=== PATIENT | female | born 1980 ===

== ENCOUNTER → 2023-12-30 09:43 | Outpatient (BNVA) | payer OTHER, SELFPAY | PROVIDERS: Visit Provider Physician Assistant Medical | DX: S39.012A Strain of muscle, fascia and tendon of lower back, initial encounter (principal); X50.0XXA Overexertion from strenuous movement or load, initial encounter | CPT/HCPCS: 99203 ==

== ENCOUNTER → 2024-01-01 11:14 | Outpatient (BNVA) | payer OTHER, SELFPAY | PROVIDERS: Visit Provider Physician Assistant Medical | DX: S39.012A Strain of muscle, fascia and tendon of lower back, initial encounter (principal); X50.0XXA Overexertion from strenuous movement or load, initial encounter | CPT/HCPCS: 99213 ==

== ENCOUNTER → 2024-01-08 09:57 | Outpatient (BNVA) | payer OTHER, SELFPAY | PROVIDERS: Visit Provider Physician Assistant Medical | DX: S39.012D Strain of muscle, fascia and tendon of lower back, subsequent encounter (principal); X50.0XXD Overexertion from strenuous movement or load, subsequent encounter | CPT/HCPCS: 99213 ==

== ENCOUNTER → 2024-01-15 11:09 | Outpatient (BNVA) | payer OTHER, SELFPAY | PROVIDERS: Visit Provider Physician Assistant Medical | DX: S39.012D Strain of muscle, fascia and tendon of lower back, subsequent encounter (principal); X50.0XXD Overexertion from strenuous movement or load, subsequent encounter | CPT/HCPCS: 99213 ==

== ENCOUNTER → 2024-02-02 10:11 | Outpatient (BNVA) | payer OTHER, SELFPAY | PROVIDERS: PCP Pediatrics; Visit Provider Physician Assistant Medical | DX: S39.012D Strain of muscle, fascia and tendon of lower back, subsequent encounter (principal); X50.0XXD Overexertion from strenuous movement or load, subsequent encounter | CPT/HCPCS: 99213 ==

== ENCOUNTER → 2024-02-12 10:08 | Outpatient (BNVA) | payer OTHER, SELFPAY | PROVIDERS: PCP Pediatrics; Visit Provider Physician Assistant | DX: M54.50 Low back pain, unspecified (principal) | CPT/HCPCS: 72100; 99215 ==

== ENCOUNTER 2024-02-20 09:57 | Outpatient (RCR) | payer OTHER, SELFPAY ==
--- NOTE | 2024-01-27 16:34 | MHC.PT.EP ---
[facility] [place] Office [place] Office [place] Office [address] Jesika Kelley [address] [phone] F: [phone] F: [phone] F: [phone] F: [phone] Physical Therapy Plan of Care Date of Evaluation: 01/27/24 Date of Surgery: Diagnosis: Lumbar sprain/ strain Assessment: Pt is a 43 y/o female [employer] who is referred to PT for eval and treat of lumbar strain who reports she was performing bed mobility with a faulty bed mechanism and injured her back on 12/27/23 which is resulting in decreased tolerance for traveling by vehicle, performing heavy HH chores, walking and standing for increased duration secondary to decreased trunk ROM, decreased core strength, increased lumbar and posterior LE tissue tension, TTP of L5 area, decreased posture and pain. Frequency and Duration: The patient will be seen 2 x/ wk x 3 wks. Short Term Goals: Initiate home program. Improve baseline pain to < 3/10; initial: 5/10. Roll Panner Goals: I with home program. Pt will improve Erlin by at least 9 points. Pt will be able to travel by car with managed Sx. Pt will improve core strength by at least 1/2 MMT grade. Pt will be able to tolerate heavy HH chores with managed Sx. Treatment Plan: Modalities to reduce pain, spasms and effusion. Manual therapy to restore motion and function. Therapeutic exercise to improve strength and flexibility. Neuromuscular re-education for posture and balance. Therapeutic activities to return to functional activities of daily living. Electronically signed by: Colin Mercedes PT. Please sign and return to therapist. Thank you for your referral.
--- NOTE | 2024-06-18 07:25 | MHC.PT.DC ---
[facility] [place] Office [place] Office [place] Office [address] Jesika Kelley [address] [phone] F: [phone] F: [phone] F: [phone] F: [phone] Physical Therapy Discharge Report Diagnosis: Lumbar sprain/ strain Date of Surgery: Date of Evaluation: 01/27/24 Date of Discharge: 06/18/24 Treatments to Date: 5 Cancellations to Date: No Shows to Date: 1 Discharge Status: Patient Elected to Stop Discharge Summary: Pt did not f/u with visits after MRI. Electronically signed by: Colin Mercedes PT. Please sign and return to therapist. Thank you for your referral.
== END 2024-06-18 07:26 | disposition home or self-care (01) ==
LOC: HO.PT 09:57
PROVIDERS: PCP Pediatrics; Visit Provider Physician Assistant Medical
DX: S39.012D Strain of muscle, fascia and tendon of lower back, subsequent encounter (principal)
CPT/HCPCS: 97110; 97140; 97161

== ENCOUNTER → 2024-02-20 15:19 | Outpatient (BNVA) | payer OTHER, SELFPAY | PROVIDERS: PCP Pediatrics; Visit Provider Physician Assistant | DX: S39.012D Strain of muscle, fascia and tendon of lower back, subsequent encounter (principal); X50.0XXD Overexertion from strenuous movement or load, subsequent encounter | CPT/HCPCS: 99213 ==

== ENCOUNTER 2024-02-24 11:16 | Outpatient (REF) | payer OTHER, SELFPAY | END 2024-02-24 11:17 | disposition home or self-care (01) | LOC: HO.MRI 11:16 | PROVIDERS: PCP Pediatrics; Visit Provider Internal Medicine | DX: S33.5XXA Sprain of ligaments of lumbar spine, initial encounter (principal) | CPT/HCPCS: 72148 ==

== ENCOUNTER → 2024-02-24 11:30 | Outpatient (BNV) | payer OTHER, SELFPAY | PROVIDERS: PCP Pediatrics; Visit Provider Radiology Diagnostic Radiology | DX: M51.27 Other intervertebral disc displacement, lumbosacral region (principal) | CPT/HCPCS: 72148 ==

== ENCOUNTER → 2024-03-05 09:37 | Outpatient (BNVA) | payer OTHER, SELFPAY | PROVIDERS: PCP Pediatrics; Visit Provider Physician Assistant | DX: S39.012D Strain of muscle, fascia and tendon of lower back, subsequent encounter (principal); X50.0XXD Overexertion from strenuous movement or load, subsequent encounter; M51.379 Other intervertebral disc degeneration, lumbosacral region without mention of lumbar back pain or lower extremity pain | CPT/HCPCS: 99213 ==

== ENCOUNTER → 2024-03-09 10:02 | Outpatient (BNVA) | payer OTHER, SELFPAY | PROVIDERS: PCP Pediatrics; Visit Provider Physician Assistant Medical | DX: M51.27 Other intervertebral disc displacement, lumbosacral region (principal); S39.012D Strain of muscle, fascia and tendon of lower back, subsequent encounter; X50.0XXD Overexertion from strenuous movement or load, subsequent encounter | CPT/HCPCS: 99213 ==

== ENCOUNTER → 2024-03-30 09:11 | Outpatient (BNVA) | payer OTHER, SELFPAY | PROVIDERS: PCP Pediatrics; Visit Provider Physician Assistant Medical | DX: S39.012D Strain of muscle, fascia and tendon of lower back, subsequent encounter (principal); X50.0XXD Overexertion from strenuous movement or load, subsequent encounter; M51.27 Other intervertebral disc displacement, lumbosacral region | CPT/HCPCS: 99213 ==

== ENCOUNTER → 2024-04-05 09:11 | Outpatient (BNVA) | payer OTHER, SELFPAY | PROVIDERS: PCP Pediatrics; Visit Provider Physician Assistant Medical | DX: M51.27 Other intervertebral disc displacement, lumbosacral region (principal) | CPT/HCPCS: 99213 ==

== ENCOUNTER → 2024-04-15 13:05 | Outpatient (BNVA) | payer OTHER, SELFPAY | PROVIDERS: PCP Pediatrics; Visit Provider Physician Assistant Medical | DX: S39.012D Strain of muscle, fascia and tendon of lower back, subsequent encounter (principal); X50.0XXD Overexertion from strenuous movement or load, subsequent encounter; M51.27 Other intervertebral disc displacement, lumbosacral region | CPT/HCPCS: 99213 ==

== ENCOUNTER → 2024-04-29 11:36 | Outpatient (BNVA) | payer OTHER, SELFPAY | PROVIDERS: PCP Pediatrics; Visit Provider Physician Assistant Medical | DX: M51.27 Other intervertebral disc displacement, lumbosacral region (principal) | CPT/HCPCS: 99213 ==

== ENCOUNTER → 2024-05-13 08:53 | Outpatient (BNVA) | payer OTHER, SELFPAY | PROVIDERS: PCP Pediatrics; Visit Provider Physician Assistant Medical | DX: M51.27 Other intervertebral disc displacement, lumbosacral region (principal) | CPT/HCPCS: 99213 ==

== ENCOUNTER 2024-05-17 11:09 | Outpatient (AMB) | payer OTHER, SELFPAY ==
[2024-05-17 11:20] VITALS: BP 106/68; PULSE 79; RESP 16; O2SAT 97; BMI 26.9
--- NOTE | 2024-05-17 11:20 | MHC.OFFVIS ---
Vital Signs 05/17/24 11:20 Height 5 ft 2 in Weight 147 lb BMI 26.9 BP 106/68 Blood Pressure Location Lt brachial Position Sitting Respiration 16 Pulse 79 Pulse Source Pulse Oximeter Pulse Oximetry (%) 97 Oxygen Delivery Method Room Air Intake Visit Reasons: Lumbosacral strain/back pain WC Physician Executive Required: No Allergies No Known Allergies Allergy (Verified 05/17/24 11:22) Medication List - Last Reconciled 05/17/24 by Farheen Patel LPN HPI HPI Lumbosacral strain/back pain WC: Details: History of Present Illness The patient is a 44-year-old female presenting with chronic lower back pain originating from an occupational incident. The pain initially began when she incurred a back strain while attempting to reposition a patient on December 27, 2023, with subsequent identification of a probable bulging disc at the L5-S1 vertebral level. Initially resistant to physical therapy, her condition showed improvement with career representative. Despite improvements, she seeks comprehensive pain management, particularly referral to specialized services. The patient continues to report pain primarily localized in the mid to lower region of her back, exacerbated by certain physical activities. Pursuant recommendations during discussion focused on enhancing core and gluteal strength and included lifestyle modifications to prevent further strain. Pain Description - Onset: Approximately 6 months ago after a workplace incident on December 27, 2023 - Quality/Character: Strain and intermittent exacerbation - Primary Location: Mid to lower back - Exacerbating Factors: Hand movements, improper lifting, repositioning patients - Relieving Factors: Chiropractic sessions, core strengthening exercises, proper lifting technique - Pain Score: Currently around one on a 10-point scale - Additional Factors: Pain localized primarily in lower back without radiation to legs Physical Exam - Appears afebrile. - Alert and oriented. - Mood and affect appropriate. - Follows and participates in conversation appropriately. - Respiratory effort is unlabored. - Able to transition from sit to stand unassisted. - Ambulates with bilaterally normal heel strike and toe off. - Able to stand and walk on toes and heels. Results - Imaging: Bulging Intervertebral Disc at L5-S1, with some degeneration Pain Management - Affect: Chronic pain affecting daily activities and occupational performance - Analgesia: Initial physical therapy sessions ineffective; career representative partially effective; pain level currently at one - Adverse Effects: Not explicitly discussed - Activities of Daily Living: Pain affects certain movements and work-related activities, thus seeking pain management for functional improvement - Aberrant Drug Related Behaviors: Not present Physical Exam Vital Signs: Last Vital Signs Pulse 79 05/17/24 11:20 Resp 16 05/17/24 11:20 BP 106/68 05/17/24 11:20 Pulse Ox 97 05/17/24 11:20 Oxygen Delivery Method Room Air 05/17/24 11:20 BMI result Body Mass Index 26.9 Assessment & Plan Assessment & Plan (1) Lumbago with sciatica: Code(s): M54.40 - Lumbago with sciatica, unspecified side Category: Medical Plan Plan For the management of chronic lower back pain, primarily stemming from an L5-S1 bulging disc, I have advised a regimen geared towards strengthening core and gluteal muscles, avoidance of career representative as a long-term solution, and incorporating swimming to support spinal health. Proper activity modifications including effective lifting techniques were discussed at length. The introduction of peripheral nerve stimulation remains a potential future intervention if pain persists. Treatment adherence and monitoring of pain levels are crucial moving forward. Patient was informed and verbally consented to the use of an ambient scribe for clinic note documentation during this visit. Discussion Notes During the consultation, I emphasized a tailored program for long-term pain relief focusing on core and gluteal strengthening aligned with swimming as an appropriate physical activity. It was explained that career representative, while currently providing relief, might not suffice for sustained management. Advised techniques for proper lifting and posture were discussed in context to occupational risks and I provided guidance on identifying core strengthening resources. Consideration for peripheral nerve stimulation was presented as a non-invasive alternative should intensified back rehabilitation fail to suffice. The patient expressed understanding and was counseled on maintaining vigilance regarding pain and functionality. Patient Instructions - Engage in daily core and gluteal strengthening exercises - Practice proper lifting techniques at work and home to prevent exacerbation of pain - Consider swimming as a low-impact exercise to support back health - Monitor pain levels and functionality, seek further care appropriately if discomfort persists - Explore online resources for core strengthening exercises - Follow-up with paint pourer as recommended Coding Level of Care Code New Pt Level 3 (04620) Diagnoses Lumbago with sciatica M54.40
== END 2024-05-17 11:58 | disposition home or self-care (01) ==
LOC: HO.PMC 11:09
PROVIDERS: PCP Pediatrics; Visit Provider Internal Medicine
DX: M54.40 Lumbago with sciatica, unspecified side (principal)
CPT/HCPCS: 99203

== ENCOUNTER → 2024-05-17 11:09 | Outpatient (BNVA) | payer OTHER, SELFPAY | PROVIDERS: PCP Pediatrics; Visit Provider Internal Medicine | DX: M54.40 Lumbago with sciatica, unspecified side (principal) | CPT/HCPCS: 99202 ==

== ENCOUNTER → 2024-06-04 13:41 | Outpatient (BNVA) | payer OTHER, SELFPAY | PROVIDERS: PCP Pediatrics; Visit Provider Physician Assistant Medical | DX: M51.27 Other intervertebral disc displacement, lumbosacral region (principal) | CPT/HCPCS: 99213 ==

== ENCOUNTER → 2024-06-29 08:56 | Outpatient (BNVA) | payer OTHER, SELFPAY | PROVIDERS: PCP Pediatrics; Visit Provider Physician Assistant Medical | DX: M51.27 Other intervertebral disc displacement, lumbosacral region (principal) | CPT/HCPCS: 99213 ==

== ENCOUNTER → 2024-07-13 08:43 | Outpatient (BNVA) | payer OTHER, SELFPAY | PROVIDERS: PCP Pediatrics; Visit Provider Physician Assistant Medical | DX: M51.27 Other intervertebral disc displacement, lumbosacral region (principal) | CPT/HCPCS: 99213 ==

== ENCOUNTER → 2024-08-24 09:12 | Outpatient (BNVA) | payer OTHER, SELFPAY | PROVIDERS: PCP Pediatrics; Visit Provider Physician Assistant Medical | DX: M51.27 Other intervertebral disc displacement, lumbosacral region (principal) | CPT/HCPCS: 99213 ==

== ENCOUNTER → 2024-09-23 15:30 | Outpatient (BNVA) | payer OTHER, SELFPAY | PROVIDERS: PCP Pediatrics; Visit Provider Physician Assistant Medical | DX: M51.27 Other intervertebral disc displacement, lumbosacral region (principal) | CPT/HCPCS: 99213 ==

== ENCOUNTER → 2024-10-28 10:16 | Outpatient (BNVA) | payer OTHER, SELFPAY | PROVIDERS: PCP Pediatrics; Visit Provider Physician Assistant Medical | DX: S39.012D Strain of muscle, fascia and tendon of lower back, subsequent encounter (principal); X50.0XXD Overexertion from strenuous movement or load, subsequent encounter; M51.27 Other intervertebral disc displacement, lumbosacral region | CPT/HCPCS: 99213 ==

== ENCOUNTER → 2024-11-15 09:07 | Outpatient (BNVA) | payer OTHER, SELFPAY | PROVIDERS: PCP Pediatrics; Visit Provider Physician Assistant Medical | DX: M51.27 Other intervertebral disc displacement, lumbosacral region (principal) | CPT/HCPCS: 99213 ==

== ENCOUNTER → 2024-12-16 09:12 | Outpatient (BNVA) | payer OTHER, SELFPAY | PROVIDERS: PCP Pediatrics; Visit Provider Physician Assistant Medical | DX: M51.27 Other intervertebral disc displacement, lumbosacral region (principal) | CPT/HCPCS: 99213 ==

== ENCOUNTER → 2025-01-13 09:00 | Outpatient (BNVA) | payer OTHER, SELFPAY | PROVIDERS: PCP Pediatrics; Visit Provider Physician Assistant Medical | DX: M51.27 Other intervertebral disc displacement, lumbosacral region (principal) | CPT/HCPCS: 99213 ==

== ENCOUNTER 2025-02-07 11:21 | Outpatient (AMB) | payer OTHER, SELFPAY ==
--- NOTE | 2025-02-07 11:23 | A.OFFVIS_ITS ---
Vital Signs 02/07/25 11:24 Height 5 ft 2 in Weight 146 lb BMI 26.7 BP 112/74 Blood Pressure Location Lt brachial Position Sitting Respiration 16 Pulse 73 Pulse Source Pulse Oximeter Pulse Oximetry (%) 100 Oxygen Delivery Method Room Air Intake Visit Reasons: Back Pain Senior Adults Director Required: No Allergies No Known Allergies Allergy (Verified 02/07/25 11:25) Medication List - Last Reconciled 02/07/25 by Farheen Patel LPN indomethacin 50 mg PO BID lidocaine 5% 1 patch topically 1 patch daily q 12 hours; leave on most painful area for up to 12 hrs magnesium oxide 400 mg PO DAILY HPI HPI Back Pain: Details: History of Present Illness The patient is a 44 year old female presenting for a follow-up visit regarding low back pain with a history of associated sciatica. She was last seen in August when physical therapy with lumbar stretching and strengthening was recommended. 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 Since she has not been working, her pain is currently not severe. However, she experienced a flare of severe, localized lower back pain a couple of weeks ago after a twisting movement, though she denies radicular symptoms down her leg. The patient has participated in physical therapy and child care associate teacher, stating she has maxed out her physical therapy. She expresses that she is not fond of needles and wishes to explore options other than injections, which she has not received. Pain Description - Location: The patient's pain is located in her lower back. - Radiation: She reports no pain radiating down her leg. - Exacerbating Factors: Pain is worsened by certain movements, such as a recent twisting motion, and her work as a nurse's aid. - Relieving Factors: Pain is less severe when she is not working. Physical Exam - Appears afebrile. - Alert and oriented. - Mood and affect appropriate. - Follows and participates in conversation appropriately. - Respiratory effort is unlabored. Results - MRI: Shows a degenerating L5-S1 disc. Pain Management - Affect: The patient's pain interferes with her ability to perform her job duties as a nurse's aid. - Analgesia: The patient expresses a preference to avoid injections for her back pain. - Activities of Daily Living: She is unable to perform her full duties at work. Physical Exam Vital Signs: Last Vital Signs Pulse 73 02/07/25 11:24 Resp 16 02/07/25 11:24 BP 112/74 02/07/25 11:24 Pulse Ox 100 02/07/25 11:24 Oxygen Delivery Method Room Air 02/07/25 11:24 BMI result Body Mass Index 26.7 Assessment & Plan Assessment & Plan (1) Discogenic low back pain: Code(s): M51.360 - Other intervertebral disc degeneration, lumbar region with discogenic back pain only Category: Medical Plan Plan Patient was informed and verbally consented to the use of an ambient scribe for clinic note documentation during this visit. 1. Discogenic Low Back Pain - The patient's pain is primarily discogenic due to significant degeneration of the L5-S1 disc, with no current evidence of nerve root compression that would justify an epidural steroid injection. She also denies radicular symptoms. - A long-term rehabilitation approach focused on strengthening core and gluteal muscles is recommended to minimize the frequency of flares. - Recommend continuing physical therapy and adding aquatic therapy to help with the discogenic component of her pain. - She was advised to avoid chiropractic treatments and lifting weights above her spinal level. - The patient was instructed to research aquatic physical therapy options and inform the office of referral requirements for worker's compensation. - An order for continued physical therapy will be provided if required by worker's compensation. Discussion Notes I explained to the patient that her low back pain stems from a degenerating disc at the L5-S1 level, which I showed her on her MRI. I educated her that this disc will likely not regenerate and will undergo slow deterioration, so the goal of treatment is to manage the condition and reduce the frequency of pain flares. I emphasized that strengthening the surrounding core and gluteal muscles will provide support to the spine and lessen the pressure on the affected disc. I recommended specific exercises like squats and planks, and advised against lifting weights above her spine level. I also recommended incorporating aquatic therapy to help unload the disc. We discussed that injections are not indicated for her at this time, as her pain is discogenic without nerve root compression or irritation, and I informed her that I would communicate this to her referring doctor. I advised her to discontinue child care associate teacher. The patient was instructed to find an aquatic therapy provider and let us know the specific referral requirements for her worker's compensation claim. She expressed an understanding of her condition and the management plan. Patient Instructions - Your back pain is caused by a worn-out disc in your lower back. - Focus on strengthening your core and buttock muscles with exercises like planks and squats. - Avoid lifting heavy weights, especially above your head, as this puts pressure on your spine. - It is recommended that you stop going to the chiropractor. - Try to do exercises in a pool (aquatic therapy), as being weightless in the water helps take pressure off your back. - You will need to find a facility that offers aquatic therapy and find out what information they need from our office to get a referral through your worker's compensation. - Please let our office know if your worker's compensation needs a new order for you to continue your regular physical therapy. - Understand that you will need to care for your back long-term, and you may still have occasional pain flare-ups. - Injections in your back are not recommended for you at this time. Coding Level of Care Code Est Pt Level 4 (12348) Diagnoses Discogenic low back pain M51.360
[2025-02-07 11:24] VITALS: BP 112/74; PULSE 73; RESP 16; O2SAT 100; BMI 26.7
== END 2025-02-07 12:03 | disposition home or self-care (01) ==
LOC: HO.PMC 11:22
PROVIDERS: PCP Pediatrics; Visit Provider Internal Medicine
DX: M51.360 Other intervertebral disc degeneration, lumbar region with discogenic back pain only (principal)
CPT/HCPCS: 99214

== ENCOUNTER → 2025-02-07 11:21 | Outpatient (BNVA) | payer OTHER, SELFPAY | PROVIDERS: PCP Pediatrics; Visit Provider Internal Medicine | DX: M51.360 Other intervertebral disc degeneration, lumbar region with discogenic back pain only (principal) | CPT/HCPCS: 99212 ==